=== PATIENT | male | born 1935 | race Caucasian/White ===

== ENCOUNTER 2019-01-30 06:51 | Emergency (ER) | payer OTHER ==
[~2019-01-30] VITALS: Ht 167.6 cm; Wt 80.3 kg
[~2019-01-30 06:51] MED LIST: ACET325 PO; AMOCLA875 PO; ASCO500 PO; ASPI81CH PO; CALCAVITDA PO; CALCIUM 500 MG1 EACH PO; Calcium + Vita1 EACH PO; Cortef20 MG PO; DOCU100 PO; Depo-Testo100 MG/1 M IM; FAMO20 PO; HYDCOR10 PO; LEVE500 PO; LEVSOD75 PO; NAPR500 PO; Prinivil10 MG PO; SIMV40 PO; TESTOSTERONE TOP; [UNRECOGNIZED DRUG - OTHER] TOP
[2019-01-30] MEDS ORDERED: SILDENAFIL20 MG PO (07:41)
[2019-01-30 08:22] LABS: BASOPHILS ABSOLUTE AUTO 0.03 K/mm3 (0.00-0.23); BASOPHILS PERCENT AUTO 0 % (0-2); EOSINOPHILS ABSOLUTE AUTO 0.08 K/mm3 (0.00-0.68); EOSINOPHILS PERCENT AUTO 1 % (0-6); Hematocrit 42.5 % (37.0-53.0); Hemoglobin 14.2 g/dL (13.5-17.5); IMMATURE GRAN ABSOLUTE AUTO 0.05 K/mm3 (0.00-0.10); IMMATURE GRAN PERCENT AUTO 1 % (0-1); LYMPHOCYTES ABSOLUTE AUTO 1.07 K/mm3 (0.84-5.20); LYMPHOCYTES PERCENT AUTO 12 % (21-46); MONOCYTES ABSOLUTE AUTO 0.78 K/mm3 (0.16-1.47); MONOCYTES PERCENT AUTO 9 % (4-13); Mean Corpuscular HGB 32.6 pg (26.0-34.0); Mean Corpuscular HGB Conc 33.4 g/dL (31.5-36.5); Mean Corpuscular Volume 98 fL (80-100); Mean Platelet Volume 10.2 fL (9.1-12.4); NEUTROPHILS PERCENT AUTO 78 % (41-73); Platelet Count 184 K/mm3 (150-400); RDW Coefficient Variation 11.9 % (11.7-14.2); RDW Standard Deviation 43.3 fL (35.1-46.3); Red Blood Cell Count 4.36 M/mm3 (4.30-5.90); White Blood Cell Count 9.01 K/mm3 (4.00-11.30)
[2019-01-30 08:28] LABS: Source, Urine Clean Catch
[2019-01-30 08:32] LABS: Appearance, Urine Clear (Clear); Bilirubin, Urine Neg (Neg); Blood, Urine 3+ (Neg); Color, Urine Yellow (P-Yellow); Glucose Qualitative, Urine Neg (Neg); Ketones, Urine Neg (Neg); Leukocyte Esterase, Urine Neg (Neg); Nitrite, Urine Neg (Neg); Protein, Urine Neg (Neg); Urobilinogen, Urine NORM (Normal); pH, Urine 6.5 (5.0-8.0)
[2019-01-30 08:34] LABS: Albumin, Blood 3.4 g/dL (3.4-5.0); Albumin/Globulin Ratio 1.1 (0.8-1.8); Bilirubin, Total 0.8 mg/dL (0.1-1.0); Bun/Creatinine Ratio 10.7 (12.0-20.0); Calcium, Blood 8.1 mg/dL (8.5-10.1); Creatinine, Blood 1.31 mg/dL (0.60-1.20); Globulin, Blood 3.1 g/dL (2.2-4.0); Potassium, Blood 4.1 mmol/L (3.5-5.5); Total Protein, Blood 6.5 g/dL (6.4-8.2)
[2019-01-30 09:08] LABS: Bacteria Not Seen /hpf; Squamous Epithelial Cells Not Seen /hpf (Few); White Blood Cells, Urine Not Seen /hpf (0-5)
[2019-01-30 09:09] LABS: Mucus Light ({null, 0-Heavy}); Transitional Epithelial Cells Rare /hpf ({null, 0-Rare})
[2019-01-30] MEDS ORDERED: Augmentin 875-1 EACH PO (10:21)
== END 2019-01-30 10:42 | disposition home or self-care (01) ==
LOC: ER 06:51
PROVIDERS: Emergency Medicine
DX: K57.32 Diverticulitis of large intestine without perforation or abscess without bleeding (principal); Z86.018 Personal history of other benign neoplasm; Z79.899 Other long term (current) drug therapy; Z79.82 Long term (current) use of aspirin
CPT/HCPCS: 36415; 74177; 80053; 81001; 83690; 85025; 96360-59; 99284-25; J7120; Q9967

== ENCOUNTER → 2020-03-09 | Outpatient (CLI) | payer OTHER ==
[~2020-03-09] MED LIST changes: +Augmentin 875-1 EACH PO; +SILDENAFIL20 MG PO
[2020-03-11 13:40] LABS: CORONAVIRUS (COVID19) CSH-NRL Negative (Negative)
== END | disposition home or self-care (01) ==
LOC: LAB 13:51 → LAB SHORT 13:51
PROVIDERS: Physician Assistant
DX: Z20.828 Contact with and (suspected) exposure to other viral communicable diseases (principal)
CPT/HCPCS: U0003

== ENCOUNTER → 2021-07-30 | Outpatient (CLI) | payer OTHER ==
[2021-07-31 13:03] LABS: Stool Occult Bld Immuno 1 Negative (NEGATIVE)
== END | disposition home or self-care (01) ==
LOC: LAB EV 10:12 → LAB SHORT 10:12
PROVIDERS: Family Medicine
DX: Z12.11 Encounter for screening for malignant neoplasm of colon (principal)
CPT/HCPCS: 82274

== ENCOUNTER 2022-04-13 15:40 | Inpatient (IN) | payer OTHER ==
[~2022-04-13] VITALS: Ht 170.2 cm; Wt 86.1 kg
[~2022-04-13 15:40] MED LIST changes: +CARV3.125 PO; +CLOP75 PO
[2022-04-13 16:40] LABS: BASOPHILS ABSOLUTE AUTO 0.03 K/mm3 (0.00-0.23); BASOPHILS PERCENT AUTO 0 % (0-2); EOSINOPHILS ABSOLUTE AUTO 0.03 K/mm3 (0.00-0.68); EOSINOPHILS PERCENT AUTO 0 % (0-6); Hematocrit 43.4 % (37.0-53.0); IMMATURE GRAN ABSOLUTE AUTO 0.08 K/mm3 (0.00-0.10); IMMATURE GRAN PERCENT AUTO 1 % (0-1); LYMPHOCYTES ABSOLUTE AUTO 0.81 K/mm3 (0.84-5.20); LYMPHOCYTES PERCENT AUTO 8 % (21-46); MONOCYTES ABSOLUTE AUTO 0.96 K/mm3 (0.16-1.47); MONOCYTES PERCENT AUTO 10 % (4-13); Mean Corpuscular HGB Conc 34.6 g/dL (31.5-36.5); Mean Corpuscular Volume 96 fL (80-100); Mean Platelet Volume 10.1 fL (9.1-12.4); NEUTROPHILS ABSOLUTE AUTO 8.06 K/mm3 (1.96-9.15); NEUTROPHILS PERCENT AUTO 81 % (41-73); Platelet Count 174 K/mm3 (150-400); RDW Coefficient Variation 12.6 % (11.7-14.2); Red Blood Cell Count 4.54 M/mm3 (4.30-5.90); White Blood Cell Count 9.97 K/mm3 (4.00-11.30)
[2022-04-13 17:17] LABS: Appearance, Urine Clear (Clear); Bilirubin, Urine Neg (Neg); Blood, Urine 5+ (Neg); Color, Urine Yellow (P-Yellow); Glucose Qualitative, Urine Neg (Neg); Ketones, Urine 1+ (Neg); Leukocyte Esterase, Urine Neg (Neg); Nitrite, Urine Neg (Neg); Protein, Urine 3+ (Neg); Source, Urine Straight Cath; Urobilinogen, Urine NORM (Normal)
[2022-04-13] MEDS ORDERED: AMLODIPINE BES2.5 MG PO (17:20)
[2022-04-13 17:29] LABS: Alanine Aminotransfer (ALT/SGP 27 U/L (12-78); Albumin, Blood 3.8 g/dL (3.4-5.0); Albumin/Globulin Ratio 1.1 (0.8-1.8); Alk Phos 48 U/L (50-136); Anion Gap 8 mmol/L (6-16); Aspartate Aminotrans (AST/SGOT 37 U/L (12-37); Bilirubin, Total 0.7 mg/dL (0.1-1.0); Blood Urea Nitrogen 21 mg/dL (8-24); Bun/Creatinine Ratio 14.5 (12.0-20.0); CO2, Blood 21 mmol/L (21-32); Calcium, Blood 8.6 mg/dL (8.5-10.1); Chloride, Blood 109 mmol/L (98-108); Creatinine, Blood 1.45 mg/dL (0.60-1.20); Ethanol (Alcohol), Blood, Med <3 mg/dL; Globulin, Blood 3.6 g/dL (2.2-4.0); Glomerular Filtration Rate 48 (60-); Glucose, Blood 65 mg/dL (70-99); Potassium, Blood 4.4 mmol/L (3.5-5.5); Sodium, Blood 138 mmol/L (136-145); Total Protein, Blood 7.4 g/dL (6.4-8.2)
[2022-04-13 17:38] LABS: Bacteria Few /hpf; Squamous Epithelial Cells Not Seen /hpf (Few); White Blood Cells, Urine 0-2 /hpf (0-5)
[2022-04-13 18:05] LABS: International Normalized Ratio 1.08; Prothrombin Time Results 11.3 Sec (9.7-11.5)
[2022-04-13 18:20] LABS: Influenza B, PCR NEGATIVE (NEGATIVE); Resp Syncytial Virus, PCR NEGATIVE (NEGATIVE); SARS-Cov-2 (COVID-19) PCR, MMC NEGATIVE (NEGATIVE)
[2022-04-13 18:28] LABS: Influenza A, PCR POSITIVE (NEGATIVE)
--- NOTE | 2022-04-14 01:56 | NUR ---
PATIENT ARRIVED TO ROOM 337 AT 2358. INITIAL TEMP WAS 105.3. ICE PACKS WERE PLACED IN AXILLARY AREA AND GROIN. PATIENT WAS NON VERBAL AND DID NOT APPEAR ABLE TO UNDERSTAND OR REACT TO COMMANDS. AFTER RECEIVING ORDERED IV D50, PATIENT BEGAN WAKING UP AND ATTEMPTING TO CRAWL OVER RAILS. HE HAS BEEN PULLING AT BOTH HIS IV'S, AND IN ORDER TO RECEIVE IV FLUIDS, HE WILL NEED AN OPPOSITE WRIST RESTRAINT TO MAINTAIN EITHER SITE. CALL PLACED TO MD FOR ORDER
--- NOTE | 2022-04-14 04:39 | NUR ---
patient unable to void more than 50 ml. Bladder scanned for 301 ml just after very small void. will recheck at 0600
[2022-04-14 06:41] LABS: BASOPHILS ABSOLUTE AUTO 0.04 K/mm3 (0.00-0.23); BASOPHILS PERCENT AUTO 0 % (0-2); EOSINOPHILS PERCENT AUTO 0 % (0-6); Hematocrit 38.1 % (37.0-53.0); Hemoglobin 13.5 g/dL (13.5-17.5); IMMATURE GRAN ABSOLUTE AUTO 0.05 K/mm3 (0.00-0.10); IMMATURE GRAN PERCENT AUTO 1 % (0-1); LYMPHOCYTES ABSOLUTE AUTO 0.69 K/mm3 (0.84-5.20); LYMPHOCYTES PERCENT AUTO 7 % (21-46); MONOCYTES ABSOLUTE AUTO 1.36 K/mm3 (0.16-1.47); MONOCYTES PERCENT AUTO 14 % (4-13); Mean Corpuscular HGB 33.7 pg (26.0-34.0); Mean Corpuscular HGB Conc 35.4 g/dL (31.5-36.5); Mean Corpuscular Volume 95 fL (80-100); Mean Platelet Volume 10.5 fL (9.1-12.4); NEUTROPHILS ABSOLUTE AUTO 7.69 K/mm3 (1.96-9.15); NEUTROPHILS PERCENT AUTO 78 % (41-73); Platelet Count 148 K/mm3 (150-400); RDW Coefficient Variation 12.6 % (11.7-14.2); RDW Standard Deviation 44.5 fL (35.1-46.3); Red Blood Cell Count 4.01 M/mm3 (4.30-5.90); White Blood Cell Count 9.83 K/mm3 (4.00-11.30)
[2022-04-14 07:00] LABS: Albumin, Blood 2.9 g/dL (3.4-5.0); Bilirubin, Total 0.7 mg/dL (0.1-1.0); Bun/Creatinine Ratio 13.2 (12.0-20.0); Calcium, Blood 7.9 mg/dL (8.5-10.1); Creatinine, Blood 2.04 mg/dL (0.60-1.20); Globulin, Blood 2.9 g/dL (2.2-4.0); Potassium, Blood 3.8 mmol/L (3.5-5.5); Total Protein, Blood 5.8 g/dL (6.4-8.2)
--- NOTE | 2022-04-14 07:52 | NUR ---
PATIENT ARRIVED TO ROOM AT 2330 FROM THE ER VERY SOMNOLENT, TEMP OF 105.3 CBG IN 60'S. UNABLE TO FOLLOW COMMANDS. PATIENT WAS PULLING AT IV LINES AND BRIEF AND TRYING TO PUT FEET OVER THE RAILS. iCE IMMEDIATELY PLACED IN AXILLIARY AREAS, GROIN AND NECK. D50 GIVEN PER ORDER ON ARRIVAL. PATIENT ROUSED SLIGHTLY AND WAS ABLE TO DRINK A SMALL AMOUNT OF ORANGE JUICE AND EAT A FEW BITES OF SHERBERT. BLOOD SUGAR AFTER ONE HOUR REMAINED IN THE 60'S. ORDER FOR RECTAL TYLENOL RECEIVED AND GIVEN WELL ORDER FOR SINGLE SOFT WRIST RESTRAINTS AND 4 RAILS FOR SAFETY. AROUND 0600, AND AFTER A 2ND DOSE OF D50, PATIENT'S BLOOD SUGAR CAME UP TO 98. WITHIN AN HOUR, IT WAS BEGINNING TO GO DOWN AGAIN. ONCOMING RN INFORMED OF SITUATION.
--- NOTE | 2022-04-14 08:00 | NUR ---
Pt laying in bed with one soft wrist restraint in place, he is not pulling at anything, will eval for removal, his was in this am and gave him a bit of breakfast which he started coughing, asked her to stop, he is a/o to self at this time, lungs are dim t/o, on one liter of 02 via n/c, resp even and unlabored, no cough noted, hrr, has pacer to lcw, no edema noted, ppp+2, cap refill <3sec, vs stable, iv site to [facility], infusing fluids as ordered, btx4, abd flat soft nontender, briefs in place, skin has abraisions to right upper arm, otherwise skin c/w/d, jose modi, he follows commands, but can't say where he is, and sentences tend to trail off with mumbling. call light in reach.
--- NOTE | 2022-04-14 12:22 | NUR ---
pt states he has to have a bm, attempting to get oob, got him up to bsc with two person assist, he is able to stand and back up to chair, seems a bit more alert, had a soft med brown stool, placed pull ups on him, gave him water in an upright position, he swallowed without chocking or cough, went ahead a tried po meds with water and yogurt, one at a time, he swallowed without cough, restraints removed, call light in reach.
--- NOTE | 2022-04-14 14:45 | NUR ---
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 Koroma was called to room to update , b/p dropping to the 70's, bolusing with ns, o2 wide open, he became responsive again on his own, will administer iv keppra as ordered, new iv started to rw by viscose cellar charge hand, will monitor vs closely durring bolus, pt talking at this time and recognizes .
--- NOTE | 2022-04-14 15:43 | NUR ---
sbp over 100 at this time, josh saez, pt responsive. spouce in room. call light in reach.
--- NOTE | 2022-04-14 18:40 | NUR ---
pt attempted to climb oob this evening, had to use bsc, and had another stool, ambulated around the bed to the bsc with one person assist, only attempts to get oob when needs toileting, used the urinal this evening as well, call light in reach.
--- NOTE | 2022-04-15 04:30 | NUR ---
UROJET ORDER OBTAINED AND MED ADMINISTERED THEN 14FR COUDE STRAIGHT CATH PROCEDURE PERFORMED FOR APPROX 375 MLS URINE OUTPUT. PRE-CATH BLADDER SCAN SHOWED APPROX 310 MLS. PT TOLERATED WELL W/STERILE TECHNIQUE MAINTAINED.
--- NOTE | 2022-04-15 05:18 | NUR ---
SHIFT SUMMARY: Pt was A/Ox1 and impulsive. Bed alarms utilized for pt safety. Pt denied pain, SOB nausea, dizziness. He was able to wean oxygen to RA. Pt keept trying to urinate but couldnt. Bladder scan was 310 and pt felt like he was retaining. notified and straight cath order placed. Straight cath patient for around 310mL. Bladder scan recheck for around 11am.
[2022-04-15 05:36] LABS: BASOPHILS ABSOLUTE AUTO 0.01 K/mm3 (0.00-0.23); BASOPHILS PERCENT AUTO 0 % (0-2); EOSINOPHILS PERCENT AUTO 0 % (0-6); Hematocrit 35.6 % (37.0-53.0); Hemoglobin 12.6 g/dL (13.5-17.5); IMMATURE GRAN ABSOLUTE AUTO 0.03 K/mm3 (0.00-0.10); IMMATURE GRAN PERCENT AUTO 0 % (0-1); LYMPHOCYTES ABSOLUTE AUTO 0.63 K/mm3 (0.84-5.20); LYMPHOCYTES PERCENT AUTO 8 % (21-46); MONOCYTES ABSOLUTE AUTO 0.77 K/mm3 (0.16-1.47); MONOCYTES PERCENT AUTO 9 % (4-13); Mean Corpuscular HGB 33.2 pg (26.0-34.0); Mean Corpuscular HGB Conc 35.4 g/dL (31.5-36.5); Mean Corpuscular Volume 94 fL (80-100); Mean Platelet Volume 10.4 fL (9.1-12.4); NEUTROPHILS ABSOLUTE AUTO 6.87 K/mm3 (1.96-9.15); NEUTROPHILS PERCENT AUTO 83 % (41-73); Platelet Count 140 K/mm3 (150-400); RDW Coefficient Variation 12.6 % (11.7-14.2); Red Blood Cell Count 3.79 M/mm3 (4.30-5.90); White Blood Cell Count 8.31 K/mm3 (4.00-11.30)
[2022-04-15 06:26] LABS: Albumin, Blood 2.8 g/dL (3.4-5.0); Anion Gap 4 mmol/L (6-16); Blood Urea Nitrogen 23 mg/dL (8-24); Bun/Creatinine Ratio 17.8 (12.0-20.0); CO2, Blood 24 mmol/L (21-32); Chloride, Blood 112 mmol/L (98-108); Creatinine, Blood 1.29 mg/dL (0.60-1.20); Glomerular Filtration Rate 55 (60-); Glucose, Blood 94 mg/dL (70-99); Magnesium, Blood 2.1 mg/dL (1.6-2.4); Phosphorus, Blood 2.6 mg/dL (2.5-4.9); Potassium, Blood 4.6 mmol/L (3.5-5.5); Sodium, Blood 140 mmol/L (136-145)
--- NOTE | 2022-04-15 17:57 | NUR ---
SHIFT SUMMARY NO ACUTE CHANGES DURING SHIFT. PT STILL VERY CONFUSED, IMPULSIVE. BED ALARM ON. ST SAW PT TODAY, STARTED ON PUREED DIET, PT TOLERATING. BLADDER SCAN COMPLETED PER ORDES, < 150ML SCANNED. PT VOIDING DURING SHIFT. KEPPRA CHANGED TO PO. NO C/O PAIN. WILL CONTINUE TO MONITOR. CALL LIGHT WITHIN REACH.
--- NOTE | 2022-04-16 04:00 | NUR ---
SHIFT SUMMARY: Pt A/Ox1. Overnight pt was very confused and impulsive. He seemed to be having some hallucinations stating his was right outside the window. He at one point was convinced he had to find his truck and shoes to go to "work." He did not sleep. was paged- meletonin ordered and given. This seemed to be ineffective as pt was still impulsive and confused. Bed alarms on for safety as well as 3 side rails. He denied SOB, nausea, numbness/tingling and dizziness. He was able to ambulate SBA.
[2022-04-16 06:16] LABS: BASOPHILS ABSOLUTE AUTO 0.01 K/mm3 (0.00-0.23); BASOPHILS PERCENT AUTO 0 % (0-2); EOSINOPHILS PERCENT AUTO 0 % (0-6); Hematocrit 33.6 % (37.0-53.0); Hemoglobin 11.9 g/dL (13.5-17.5); IMMATURE GRAN ABSOLUTE AUTO 0.03 K/mm3 (0.00-0.10); IMMATURE GRAN PERCENT AUTO 1 % (0-1); LYMPHOCYTES ABSOLUTE AUTO 0.89 K/mm3 (0.84-5.20); LYMPHOCYTES PERCENT AUTO 15 % (21-46); MONOCYTES ABSOLUTE AUTO 0.48 K/mm3 (0.16-1.47); MONOCYTES PERCENT AUTO 8 % (4-13); Mean Corpuscular HGB 33.6 pg (26.0-34.0); Mean Corpuscular HGB Conc 35.4 g/dL (31.5-36.5); Mean Corpuscular Volume 95 fL (80-100); NEUTROPHILS ABSOLUTE AUTO 4.49 K/mm3 (1.96-9.15); NEUTROPHILS PERCENT AUTO 76 % (41-73); Platelet Count 141 K/mm3 (150-400); RDW Coefficient Variation 12.5 % (11.7-14.2); RDW Standard Deviation 44.1 fL (35.1-46.3); Red Blood Cell Count 3.54 M/mm3 (4.30-5.90)
[2022-04-16 06:33] LABS: Albumin, Blood 2.9 g/dL (3.4-5.0); Anion Gap 6 mmol/L (6-16); Blood Urea Nitrogen 23 mg/dL (8-24); Bun/Creatinine Ratio 19.8 (12.0-20.0); CO2, Blood 23 mmol/L (21-32); Chloride, Blood 112 mmol/L (98-108); Creatinine, Blood 1.16 mg/dL (0.60-1.20); Glomerular Filtration Rate 62 (60-); Glucose, Blood 81 mg/dL (70-99); Magnesium, Blood 2.1 mg/dL (1.6-2.4); Phosphorus, Blood 2.6 mg/dL (2.5-4.9); Potassium, Blood 3.8 mmol/L (3.5-5.5); Sodium, Blood 141 mmol/L (136-145)
--- NOTE | 2022-04-16 18:10 | NUR ---
PT TRANSFERRED TO SCU PT TRANSFERRED FROM MAIN MEDICAL FLOOR TO SCU, ROOM 350. REPORT GIVEN TO CLAIRE PANTOJA RN. PT SAFELY ESCORTED VIA BED. FAMILY (STEP SON, LAVERNE), AT BEDSIDE, AWARE OF TRANSFER. PT RESTRAINT DOCUMENTATION UP TO DATE. PT STABLE UPON TRANSFER. AxOx1- SELF.
--- NOTE | 2022-04-16 20:17 | NUR ---
SHIFT SUMMARY PTN TRANSFER FROM FLOOR AT 4 PM TO OUR CARE. PTN CONFUSED WITH METABOLIC ENCEPHALOPATHY. HE DOES HAVE DX DEMENTIA. PTN IS IMPULSIVE AND IT WAS REPORTED THAT HE GOT OUT OF THE NATHANIEL 4 TIMES, AND SOFT WRIST RESTRAINTS WERE APPLIED. IN THE SHORT FEW HOURS IN OUR CARE, PTN GOT OUT OF WRIST RESTAINT AND WAS STILL TRYING TO EXIT BED. HE DID TAKE HIS MEDICATION IN PUREED PEACHES, AND THIS RN WAS ABLE TO FLUSH THE PERIPHERAL IV IN HIS RIGHT HAND AND ADMINISTER IV ANTIBIOICS. IT WAS PASSED ON THAT PTN MAY DO WELL TO BE ABLE TO GET UP AND MOVE AROUND, BUT CURRENTLY NOT RE-DIRECTED EASILY AND IMPULSIVE, ALONG WITH BEING CONFUSED. YAS INVOLVED IN PTN CARE. COTINUE TO MONITOR.
--- NOTE | 2022-04-17 03:15 | NUR ---
Patient remains in restraints, very combative with staff, trying to hit and kick while recieving care, attempting to get out of bed even while restraints to wrists and torso were in place. Resting at this time.
[2022-04-17 06:01] LABS: Anion Gap 7 mmol/L (6-16); Blood Urea Nitrogen 22 mg/dL (8-24); CO2, Blood 24 mmol/L (21-32); Calcium, Blood 7.8 mg/dL (8.5-10.1); Chloride, Blood 113 mmol/L (98-108); Creatinine, Blood 1.05 mg/dL (0.60-1.20); Glomerular Filtration Rate 70 (60-); Glucose, Blood 80 mg/dL (70-99); Magnesium, Blood 2.1 mg/dL (1.6-2.4); Phosphorus, Blood 3.4 mg/dL (2.5-4.9); Potassium, Blood 3.6 mmol/L (3.5-5.5); Sodium, Blood 144 mmol/L (136-145)
[2022-04-17 06:41] LABS: BASOPHILS PERCENT AUTO 0 % (0-2); EOSINOPHILS PERCENT AUTO 0 % (0-6); Hematocrit 34.2 % (37.0-53.0); Hemoglobin 11.9 g/dL (13.5-17.5); IMMATURE GRAN ABSOLUTE AUTO 0.01 K/mm3 (0.00-0.10); IMMATURE GRAN PERCENT AUTO 0 % (0-1); LYMPHOCYTES ABSOLUTE AUTO 0.88 K/mm3 (0.84-5.20); LYMPHOCYTES PERCENT AUTO 21 % (21-46); MONOCYTES ABSOLUTE AUTO 0.37 K/mm3 (0.16-1.47); MONOCYTES PERCENT AUTO 9 % (4-13); Mean Corpuscular HGB 33.1 pg (26.0-34.0); Mean Corpuscular HGB Conc 34.8 g/dL (31.5-36.5); Mean Corpuscular Volume 95 fL (80-100); Mean Platelet Volume 11.1 fL (9.1-12.4); NEUTROPHILS ABSOLUTE AUTO 2.86 K/mm3 (1.96-9.15); NEUTROPHILS PERCENT AUTO 69 % (41-73); Platelet Count 144 K/mm3 (150-400); RDW Coefficient Variation 12.4 % (11.7-14.2); RDW Standard Deviation 43.6 fL (35.1-46.3); White Blood Cell Count 4.12 K/mm3 (4.00-11.30)
[2022-04-17] MEDS ORDERED: AZIT250 PO (11:42)
[2022-04-17] MEDS ORDERED: AMOCLA875 PO (11:44)
[2022-04-17] MEDS ORDERED: OSELTAMIVIR PHO30 M1 PO (12:01)
--- NOTE | 2022-04-17 15:19 | NUR ---
DC HOME PT'S IS INSISTENT UPON TAKING PT HOME. STATES HE'LL BE MORE COMFORTABLE IN HIS OWN ENVIROMENT AND CONFIDENT HE'LL CLEAR MENTALLY. AGREED TO DC PT HOME W/HH. WRITTEN & VERBAL DC INSTRUCTIONS GIVEN TO PT AND PT'S . PT'S VERBALIZES GOOD UNDERSTANDING. PIV DC'D WITH CATH TIP INTACT, NO REDNESS OR SWELLING NOTED. PT DRESSED IN OWN CLOTHES WITH MOD TO MAX ASSIST. PT RESISTANT TO FOLLOWING DIRECTIONS, REFUSED TO PUT ON SOCKS & SHOES. PT'S SON ALSO PRESENT FOR DC. PT TO PRIVATE VEHICLE VIA W/C WITH ALL PERSONAL BELONGINGS.
== END 2022-04-17 15:00 | disposition home health service (06) | DRG 871 ==
LOC: ER 15:40 → MEDS 21:53
PROVIDERS: Family Medicine; Student in an Organized Health Care Education/Training Program; ADMIT Internal Medicine
DX: A41.9 Sepsis, unspecified organism (principal); G92.8 Other toxic encephalopathy; J96.01 Acute respiratory failure with hypoxia; J10.08 Influenza due to other identified influenza virus with other specified pneumonia; J15.9 Unspecified bacterial pneumonia; E27.40 Unspecified adrenocortical insufficiency; N17.9 Acute kidney failure, unspecified; E03.9 Hypothyroidism, unspecified; E16.2 Hypoglycemia, unspecified; I10 Essential (primary) hypertension; G30.9 Alzheimer's disease, unspecified; E78.5 Hyperlipidemia, unspecified; M19.90 Unspecified osteoarthritis, unspecified site; K21.9 Gastro-esophageal reflux disease without esophagitis; F02.80 Dementia in other diseases classified elsewhere, unspecified severity, without behavioral disturbance, psychotic disturbance, mood disturbance, and anxiety; G40.909 Epilepsy, unspecified, not intractable, without status epilepticus; W19.XXXA Unspecified fall, initial encounter; Z20.822 Contact with and (suspected) exposure to COVID-19; Z79.899 Other long term (current) drug therapy; Z79.82 Long term (current) use of aspirin; Z86.73 Personal history of transient ischemic attack (TIA), and cerebral infarction without residual deficits; Z79.811 Long term (current) use of aromatase inhibitors; Z98.890 Other specified postprocedural states; Z98.42 Cataract extraction status, left eye; Z98.41 Cataract extraction status, right eye; Z95.0 Presence of cardiac pacemaker
CPT/HCPCS: 0241U; 36415; 70450; 71045; 80053; 80069; 81001; 82947; 83605; 83735; 83880; 84145; 84484; 85025; 85610; 87040; 92610; 93005; 93010; 97116; 97161; 97530; 99285-25; A9270; C9113; G0480; J0456; J0696; J1644; J1650; J1720; J1953; J2060; J7030; J7050; J7120; J7799

== ENCOUNTER 2023-05-25 09:02 | Emergency (ER) | payer OTHER ==
[~2023-05-25] VITALS: Ht 175.3 cm; Wt 81.7 kg
[~2023-05-25 09:02] MED LIST changes: +AMLODIPINE BES2.5 MG PO; +AZIT250 PO; +OSELTAMIVIR PHO30 M1 PO
[2023-05-25 09:30] LABS: BASOPHILS ABSOLUTE AUTO 0.03 K/mm3 (0.00-0.23); BASOPHILS PERCENT AUTO 0 % (0-2); EOSINOPHILS ABSOLUTE AUTO 0.03 K/mm3 (0.00-0.68); EOSINOPHILS PERCENT AUTO 0 % (0-6); Hematocrit 36.7 % (37.0-53.0); Hemoglobin 12.4 g/dL (13.5-17.5); IMMATURE GRAN ABSOLUTE AUTO 0.03 K/mm3 (0.00-0.10); IMMATURE GRAN PERCENT AUTO 0 % (0-1); LYMPHOCYTES ABSOLUTE AUTO 0.82 K/mm3 (0.84-5.20); LYMPHOCYTES PERCENT AUTO 12 % (21-46); MONOCYTES ABSOLUTE AUTO 0.78 K/mm3 (0.16-1.47); MONOCYTES PERCENT AUTO 11 % (4-13); Mean Corpuscular HGB 32.9 pg (26.0-34.0); Mean Corpuscular HGB Conc 33.8 g/dL (31.5-36.5); Mean Corpuscular Volume 97 fL (80-100); Mean Platelet Volume 10.1 fL (9.1-12.4); NEUTROPHILS ABSOLUTE AUTO 5.14 K/mm3 (1.96-9.15); NEUTROPHILS PERCENT AUTO 75 % (41-73); Platelet Count 141 K/mm3 (150-400); RDW Coefficient Variation 12.9 % (11.7-14.2); RDW Standard Deviation 45.6 fL (35.1-46.3); Red Blood Cell Count 3.77 M/mm3 (4.30-5.90); White Blood Cell Count 6.83 K/mm3 (4.00-11.30)
[2023-05-25] MEDS ORDERED: NS 1,000 ML IV SCH (09:35)
[2023-05-25] MEDS ORDERED: Hydrocortisone Sod Succinate 100 MG Vial IV ONE (09:35)
[2023-05-25 09:45] LABS: Albumin, Blood 3.5 g/dL (3.4-5.0); Bilirubin, Total 0.8 mg/dL (0.1-1.0); Bun/Creatinine Ratio 17.2 (12.0-20.0); Calcium, Blood 8.7 mg/dL (8.5-10.1); Creatinine, Blood 1.69 mg/dL (0.60-1.20); Globulin, Blood 3.4 g/dL (2.2-4.0); Potassium, Blood 4.4 mmol/L (3.5-5.5); Total Protein, Blood 6.9 g/dL (6.4-8.2)
[2023-05-25] MEDS ORDERED: QUET25 PO (09:47)
[2023-05-25] MEDS ORDERED: SPIR25 PO (09:47)
[2023-05-25 10:36] LABS: Influenza A, PCR NEGATIVE (NEGATIVE); Influenza B, PCR NEGATIVE (NEGATIVE); Resp Syncytial Virus, PCR NEGATIVE (NEGATIVE)
[2023-05-25 10:38] LABS: SARS-Cov-2 (COVID-19) PCR, MMC POSITIVE (NEGATIVE)
[2023-05-25 11:23] LABS: Source, Urine Voided
[2023-05-25 11:38] LABS: Appearance, Urine Clear (Clear); Bilirubin, Urine Neg (Neg); Blood, Urine 5+ (Neg); Color, Urine Yellow (P-Yellow); Glucose Qualitative, Urine Neg (Neg); Ketones, Urine Neg (Neg); Leukocyte Esterase, Urine Neg (Neg); Nitrite, Urine Neg (Neg); Protein, Urine 2+ (Neg); Urobilinogen, Urine NORM (Normal)
[2023-05-25 11:48] LABS: Bacteria Rare /hpf; Mucus Light (0-Heavy); Squamous Epithelial Cells Rare /hpf (Few)
[2023-05-25] MEDS ORDERED: LevETIRAcetam 500 MG Tab PO ONE (12:55)
[2023-05-25 13:09] VITALS: BP 123/79
[2023-05-25] MEDS ORDERED: PAXLOVID 300-11 EAC1 PO (14:06)
== END 2023-05-25 13:50 | disposition home or self-care (01) ==
LOC: ER 09:02
PROVIDERS: Emergency Medicine
DX: U07.1 COVID-19 (principal); N17.9 Acute kidney failure, unspecified; I12.9 Hypertensive chronic kidney disease with stage 1 through stage 4 chronic kidney disease, or unspecified chronic kidney disease; N18.9 Chronic kidney disease, unspecified; E78.5 Hyperlipidemia, unspecified; K21.9 Gastro-esophageal reflux disease without esophagitis; M19.90 Unspecified osteoarthritis, unspecified site; G30.9 Alzheimer's disease, unspecified; F02.80 Dementia in other diseases classified elsewhere, unspecified severity, without behavioral disturbance, psychotic disturbance, mood disturbance, and anxiety; E27.40 Unspecified adrenocortical insufficiency; E03.9 Hypothyroidism, unspecified; Z86.018 Personal history of other benign neoplasm; Z79.890 Hormone replacement therapy; Z79.82 Long term (current) use of aspirin; Z79.899 Other long term (current) drug therapy
CPT/HCPCS: 0241U; 36415; 71046; 80053; 81001; 83605; 84145; 85025; 87040; 93005; 93010; 96361; 96374; 99285-25; A9270; J1720; J7030

== ENCOUNTER → 2024-01-30 | Outpatient (CLI) | payer OTHER ==
[~2024-01-30] MED LIST changes: +PAXLOVID 300-11 EAC1 PO; +QUET25 PO; +SPIR25 PO
[2024-01-30 14:19] LABS: Appearance, Urine Clear (Clear); Bilirubin, Urine Neg (Neg); Blood, Urine 1+ (Neg); Color, Urine Yellow (P-Yellow); Glucose Qualitative, Urine Neg (Normal); Ketones, Urine Neg (Neg); Leukocyte Esterase, Urine Neg (Neg); Nitrite, Urine Neg (Neg); Protein, Urine Neg (Neg); Urobilinogen, Urine NORM (Normal)
[2024-01-30 14:31] LABS: Bacteria Not Seen /hpf; Squamous Epithelial Cells Not Seen /hpf (Few); White Blood Cells, Urine 0-2 /hpf (0-5)
[2024-01-30 14:32] LABS: Calcium Oxalate Crystals Few /hpf; Mucus Light (0-Heavy)
== END | disposition home or self-care (01) ==
LOC: LAB 11:00 → LAB SHORT 11:00
PROVIDERS: Family Medicine
DX: R60.0 Localized edema (principal)
CPT/HCPCS: 81001

== ENCOUNTER → 2024-02-12 | Outpatient (CLI) | payer OTHER ==
[~2024-02-12] MED LIST changes: +ACET500 PO; +Cortef5 MG PO
[2024-02-12 08:39] LABS: BASOPHILS ABSOLUTE AUTO 0.06 K/mm3 (0.00-0.23); BASOPHILS PERCENT AUTO 1 % (0-2); EOSINOPHILS ABSOLUTE AUTO 0.34 K/mm3 (0.00-0.68); EOSINOPHILS PERCENT AUTO 3 % (0-6); Hematocrit 31.3 % (37.0-53.0); IMMATURE GRAN ABSOLUTE AUTO 0.04 K/mm3 (0.00-0.10); IMMATURE GRAN PERCENT AUTO 0 % (0-1); LYMPHOCYTES ABSOLUTE AUTO 1.71 K/mm3 (0.84-5.20); LYMPHOCYTES PERCENT AUTO 16 % (21-46); MONOCYTES ABSOLUTE AUTO 1.16 K/mm3 (0.16-1.47); MONOCYTES PERCENT AUTO 11 % (4-13); Mean Corpuscular HGB 33.3 pg (26.0-34.0); Mean Corpuscular HGB Conc 35.1 g/dL (31.5-36.5); Mean Corpuscular Volume 95 fL (80-100); Mean Platelet Volume 11.1 fL (9.1-12.4); NEUTROPHILS ABSOLUTE AUTO 7.27 K/mm3 (1.96-9.15); NEUTROPHILS PERCENT AUTO 69 % (41-73); Platelet Count 196 K/mm3 (150-400); RDW Coefficient Variation 11.7 % (11.7-14.2); RDW Standard Deviation 40.2 fL (35.1-46.3); White Blood Cell Count 10.58 K/mm3 (4.00-11.30)
[2024-02-12 08:48] LABS: Albumin, Blood 3.5 g/dL (3.4-5.0); Albumin/Globulin Ratio 1.1 (0.8-1.8); Bilirubin, Total 0.8 mg/dL (0.1-1.0); Calcium, Blood 8.9 mg/dL (8.5-10.1); Creatinine, Blood 2.58 mg/dL (0.60-1.20); Globulin, Blood 3.3 g/dL (2.2-4.0); Potassium, Blood 4.1 mmol/L (3.5-5.5); Total Protein, Blood 6.8 g/dL (6.4-8.2)
== END | disposition home or self-care (01) ==
LOC: LAB 08:33 → LAB SHORT 08:33
PROVIDERS: Physician Assistant
DX: R06.02 Shortness of breath (principal)
CPT/HCPCS: 80053; 83880; 84484; 85025

== ENCOUNTER 2024-02-14 10:09 | Inpatient (IN) | payer OTHER ==
[~2024-02-14] VITALS: Ht 170.2 cm; Wt 92.6 kg
[~2024-02-14 10:09] MED LIST changes: -ACET500 PO; -Cortef5 MG PO; -Flonase 0.05% N16 GM
[2024-02-14] MEDS ORDERED: Cortef5 MG PO (11:06)
[2024-02-14] MEDS ORDERED: ACET500 PO (11:08)
[2024-02-14 11:13] LABS: BASOPHILS ABSOLUTE AUTO 0.04 K/mm3 (0.00-0.23); BASOPHILS PERCENT AUTO 1 % (0-2); EOSINOPHILS ABSOLUTE AUTO 0.27 K/mm3 (0.00-0.68); EOSINOPHILS PERCENT AUTO 3 % (0-6); Hematocrit 30.2 % (37.0-53.0); Hemoglobin 10.2 g/dL (13.5-17.5); IMMATURE GRAN ABSOLUTE AUTO 0.03 K/mm3 (0.00-0.10); IMMATURE GRAN PERCENT AUTO 0 % (0-1); LYMPHOCYTES ABSOLUTE AUTO 0.95 K/mm3 (0.84-5.20); LYMPHOCYTES PERCENT AUTO 11 % (21-46); MONOCYTES ABSOLUTE AUTO 0.88 K/mm3 (0.16-1.47); MONOCYTES PERCENT AUTO 10 % (4-13); Mean Corpuscular HGB 33.1 pg (26.0-34.0); Mean Corpuscular HGB Conc 33.8 g/dL (31.5-36.5); Mean Corpuscular Volume 98 fL (80-100); Mean Platelet Volume 10.7 fL (9.1-12.4); NEUTROPHILS ABSOLUTE AUTO 6.55 K/mm3 (1.96-9.15); NEUTROPHILS PERCENT AUTO 75 % (41-73); Platelet Count 194 K/mm3 (150-400); RDW Coefficient Variation 11.8 % (11.7-14.2); RDW Standard Deviation 41.5 fL (35.1-46.3); Red Blood Cell Count 3.08 M/mm3 (4.30-5.90); White Blood Cell Count 8.72 K/mm3 (4.00-11.30)
[2024-02-14 11:27] LABS: Albumin, Blood 3.2 g/dL (3.4-5.0); Albumin/Globulin Ratio 0.9 (0.8-1.8); Bilirubin, Total 0.7 mg/dL (0.1-1.0); Calcium, Blood 8.4 mg/dL (8.5-10.1); Creatinine, Blood 2.57 mg/dL (0.60-1.20); Globulin, Blood 3.5 g/dL (2.2-4.0); Potassium, Blood 4.3 mmol/L (3.5-5.5); Total Protein, Blood 6.7 g/dL (6.4-8.2)
[2024-02-14] MEDS ORDERED: CefTRIAXone Sodium 1,000 MG in NS 100 ML IV ONE (12:55)
[2024-02-14] MEDS ORDERED: Azithromycin 500 MG in NS 250 ML IV ONE (12:55)
[2024-02-14] MEDS ORDERED: Hydrocortisone Sod Succinate 100 MG Vial IV ONE (12:55)
[2024-02-14 13:31] LABS: Influenza A, PCR NEGATIVE (NEGATIVE); Influenza B, PCR NEGATIVE (NEGATIVE); Resp Syncytial Virus, PCR NEGATIVE (NEGATIVE); SARS-Cov-2 (COVID-19) PCR, MMC NEGATIVE (NEGATIVE)
[2024-02-14] MEDS ORDERED: LORazepam 2 MG/ML 1ML Injection IV PRN (13:55)
[2024-02-14] MEDS ORDERED: FLU VACC TS2024-25(6MOS UP)/PF 45 MCG/0.5 ML SYRINGE IM SCH (13:55)
[2024-02-14] MEDS ORDERED: Lactated Ringer's 1,000 ML IV SCH (13:55)
[2024-02-14 14:14] LABS: Source, Urine Clean Catch
[2024-02-14 14:17] LABS: Appearance, Urine Hazy (Clear); Bilirubin, Urine Neg (Neg); Blood, Urine 5+ (Neg); Color, Urine Yellow (P-Yellow); Glucose Qualitative, Urine Neg (Neg); Ketones, Urine Neg (Neg); Leukocyte Esterase, Urine Neg (Neg); Nitrite, Urine Neg (Neg); Protein, Urine 2+ (Neg); Specific Gravity, Urine 1.015 (1.003-1.022); Urobilinogen, Urine NORM (Normal)
[2024-02-14] MEDS ORDERED: levETIRAcetam 750 MG in NS 100 ML IV SCH (14:20)
[2024-02-14 14:26] LABS: Bacteria Rare /hpf; Squamous Epithelial Cells Rare /hpf (Few); White Blood Cells, Urine 0-2 /hpf (0-5)
[2024-02-14 14:27] LABS: Red Blood Cells, Urine TNTC /hpf (0-2); Renal Epithelial Rare /hpf (0-Rare)
[2024-02-14] MEDS ORDERED: Lactated Ringer's 1,000 ML IV ONE ×2 (14:37→14:45)
[2024-02-14 15:56] LABS: Adenovirus Not Detected (NOT DETECT); Bordetella pertussis Not Detected (NOT DETECT); Chlamydophila pneumoniae Not Detected (NOT DETECT); Coronavirus 229E Not Detected (NOT DETECT); Coronavirus HKU1 Not Detected (NOT DETECT); Coronavirus NL63 Not Detected (NOT DETECT); Coronavirus OC43 Not Detected (NOT DETECT); Human Metapneumovirus Not Detected (NOT DETECT); Human Rhinovirus/Enterovirus Not Detected (NOT DETECT); Influenza A/2009-H1 Not Detected (NOT DETECT); Influenza A/H1 Not Detected (NOT DETECT); Influenza A/H3 Not Detected (NOT DETECT); Influenza B Not Detected (NOT DETECT); Mycoplasma pneumoniae Not Detected (NOT DETECT); Parainfluenza Virus 1 Not Detected (NOT DETECT); Parainfluenza Virus 2 Not Detected (NOT DETECT); Parainfluenza Virus 3 Not Detected (NOT DETECT); Parainfluenza Virus 4 Not Detected (NOT DETECT); Respiratory Syncytial Virus Not Detected (NOT DETECT); SARS-Cov-2 (COVID-19), BioFire Not Detected (NOT DETECT)
[2024-02-14 17:03] LABS: Base Excess Venous -2.1 mmol/L; Bicarbonate Venous 21.8 mmol/L (24.0-30.0); PCO2 Venous 42.4 mmHg (38-42); pH Blood Venous 7.35 (7.34-7.37)
--- NOTE | 2024-02-14 18:50 | NUR ---
PCU ADMIT / END OF SHIFT PT BROUGHT TO PCU-11 BY MIL FROM ER @ APPROX 1600. PT SLEEPING & NOT WAKING TO VERBAL STIMULI. PT SLID OVER FROM [facility] TO PCU BED BY 4 STAFF MEMBERS. PT MOANING IN RESPONSE. PT BP LOW, OTHERWISE VSS. SPO2 > 92% ON RA. MONITOR SHOWING SR, HR 70s. PT SPOUSE ACCOMPANYING PT AT TIME OF ARRIVAL. PT SPOUSE ASSISTING W/ ADMIT. PT SPOUSE APOLOGIZING & STATING "HE'S BEEN A LOT. HE WILL BE ALOT." PT SPOUSE REPORTING TO FAMILY "HE HIT ME & TRIED TO PUSH ME DOWN." PT FAMILY STATING "WELL HE LOOKS KNOCKED OUT NOW." PT SLEEPING, WAKING MINIMALLY TO VERBAL STIMULI W/ TOUCH. PT SPOUSE STATING "THIS IS WHAT HE DOES AFTER HE HAS A SEIZURE." PT SLEEPING IN BED. BED ALARM ON.
[2024-02-14 19:41] VITALS: BP 92/50
[2024-02-14 19:44] VITALS: BP 108/73
[2024-02-14] MEDS ORDERED: Hydrocortisone Sod Succinate 100 MG Vial IV SCH (22:00)
[2024-02-14 23:08] VITALS: BP 100/56
[2024-02-15 03:22] VITALS: BP 112/60
[2024-02-15 04:49] LABS: BASOPHILS ABSOLUTE AUTO 0.01 K/mm3 (0.00-0.23); BASOPHILS PERCENT AUTO 0 % (0-2); EOSINOPHILS PERCENT AUTO 0 % (0-6); Hematocrit 27.9 % (37.0-53.0); Hemoglobin 9.5 g/dL (13.5-17.5); IMMATURE GRAN ABSOLUTE AUTO 0.05 K/mm3 (0.00-0.10); IMMATURE GRAN PERCENT AUTO 1 % (0-1); LYMPHOCYTES ABSOLUTE AUTO 0.62 K/mm3 (0.84-5.20); LYMPHOCYTES PERCENT AUTO 6 % (21-46); MONOCYTES ABSOLUTE AUTO 0.19 K/mm3 (0.16-1.47); MONOCYTES PERCENT AUTO 2 % (4-13); Mean Corpuscular HGB 33.2 pg (26.0-34.0); Mean Corpuscular HGB Conc 34.1 g/dL (31.5-36.5); Mean Corpuscular Volume 98 fL (80-100); Mean Platelet Volume 11.2 fL (9.1-12.4); NEUTROPHILS PERCENT AUTO 92 % (41-73); Platelet Count 202 K/mm3 (150-400); RDW Coefficient Variation 11.3 % (11.7-14.2); RDW Standard Deviation 40.2 fL (35.1-46.3); Red Blood Cell Count 2.86 M/mm3 (4.30-5.90); White Blood Cell Count 10.37 K/mm3 (4.00-11.30)
[2024-02-15 05:12] LABS: Bun/Creatinine Ratio 19.9 (12.0-20.0); Calcium, Blood 8.8 mg/dL (8.5-10.1); Creatinine, Blood 1.81 mg/dL (0.60-1.20); Potassium, Blood 4.5 mmol/L (3.5-5.5)
--- NOTE | 2024-02-15 05:56 | NUR ---
shift summary- at start of shift patient woke up slightly agitated when taking vitals and removing a coban dressing- he quickly fell back asleep. about 30 minutes later when patient woke up he was redirectable, only oriented to himself, though able to engage in conversation, but not track it very well. for instance, when telling him he was in the hospital, he kept insisting that his was in the hospital and that he was at home. overall a very pleasant night with him, pt was able to follow all commands with direction. placed a purwick on him, he wasnt able to pee at first, bladder scan showed less than 400ml, and then patient was able to void 150ml. he ended up pulling out his IV, became confused and pulled off his purwick care home through the night, but was easily re-directable. new purwick placed, as well as IV, and he was able to urinate in the purwick for a 2nd time with coaching (as he is unfamilar with the device). Vital signs stable throughout the night, MAP greater than 65. called and given an update at 2100 from this RN. no other issues to note.
[2024-02-15] MEDS ORDERED: Pantoprazole Sodium 40 MG Injection IV SCH (06:00)
[2024-02-15 07:19] VITALS: BP 123/70
[2024-02-15] MEDS ORDERED: CefTRIAXone Sodium 1,000 MG in NS 100 ML IV SCH (09:00)
[2024-02-15] MEDS ORDERED: Azithromycin 500 MG in NS 250 ML IV SCH (09:00)
[2024-02-15] MEDS ORDERED: Heparin Sodium,Porcine 5,000 UNIT/0.5 ML SDV SC SCH (09:00)
[2024-02-15] MEDS ORDERED: OLANZapine 10 MG Tab PO PRN (10:10)
--- NOTE | 2024-02-15 14:22 | NUR ---
TRANSFER: PT TO ROOM 349 VIA BED. REPORT GIVEN TO MEDICAL RN. CALL PLACED TO , VOICEMAL LEFT.
--- NOTE | 2024-02-15 14:38 | NUR ---
TRANSFER NOTE PT A&OX1, UNABLE TO RECAL BIRTHDAY, ORIENTED TO NAME, SPEAKS IN SENTENCES BUT DOESN'T MAKE SENSE. PT ADMITTED DUE TO HYPOTENSION. PT REPORTS NO CHEST PAIN/DISCOMFORT. PT LAST BP WAS 123/70. PT REPORTS NO PAIN AND SHOWS NO GRIMACING AT THIS TIME. PT HAS SITTER. PT ON ROOM AIR. TELE WAS D/C. MALE PERWICK IN PLACE. RESPIRATIONS ARE EVEN AND UNLABORED. PT HAS OCCASIONAL COUGH. PT SAW SPEECH THERAPY, ST PUT IN ORDERS PT CAN SWALLOW PILLS WHOLE WITH WATER. SEIZURE PRECAUTIONS IN PLACE. PREVIOUS NURSE NOTIFIED OF TRANSFER. PT ORIENTED TO ROOM, CALL LIGHT IN REACH.
[2024-02-15 15:35] VITALS: BP 132/72
--- NOTE | 2024-02-15 16:47 | NUR ---
NOTE MD CALL. PUTTY REMOVER REPORTED PT WAS AGITATED, WENT INTO ROOM, NOTICED PT WAS RESTLESS, THROWING OFF COVERS. VISITOR AT BEDSIDE VERBALIZED THAT PT JUST WANTS OUT. NO NEW ORDERS AT THIS TIME.
--- NOTE | 2024-02-15 18:26 | NUR ---
SHIFT SUMMARY NO ACUTE CHANGES OCCURED DURING SHIFT. LR RUNNING AT 100ML/HR. SITTER AT BEDSIDE. PT WAS BLADDER SCANNED DUE TO POTENTIAL RETENTION. 470ML WAS NOTED. SITTER REPORTEDLY PALPATED BLADDER AND PT VOIDED PER MALE PERWICK 275ML. BLADDER SCANNED PT POST VOID. 195ML WAS NOTED PER SCAN. CALL LIGHT IN REACH.
[2024-02-15] MEDS ORDERED: QUEtiapine Fumarate 25 MG Tab PO ONE (19:35)
[2024-02-15 19:50] VITALS: BP 141/128
[2024-02-15] MEDS ORDERED: LORazepam 2 MG/ML 1ML Injection IV ONE (20:25)
[2024-02-15] MEDS ORDERED: Famotidine 20 MG Tab PO SCH (21:00)
[2024-02-15] MEDS ORDERED: NS 250 ML IV PRN (21:35)
[2024-02-16 02:17] VITALS: BP 119/55
[2024-02-16 05:33] LABS: BASOPHILS ABSOLUTE AUTO 0.01 K/mm3 (0.00-0.23); BASOPHILS PERCENT AUTO 0 % (0-2); EOSINOPHILS PERCENT AUTO 0 % (0-6); Hematocrit 27.1 % (37.0-53.0); IMMATURE GRAN ABSOLUTE AUTO 0.13 K/mm3 (0.00-0.10); IMMATURE GRAN PERCENT AUTO 1 % (0-1); LYMPHOCYTES PERCENT AUTO 7 % (21-46); MONOCYTES PERCENT AUTO 7 % (4-13); Mean Corpuscular HGB 33.1 pg (26.0-34.0); Mean Corpuscular HGB Conc 33.2 g/dL (31.5-36.5); Mean Corpuscular Volume 100 fL (80-100); Mean Platelet Volume 10.2 fL (9.1-12.4); NEUTROPHILS ABSOLUTE AUTO 11.59 K/mm3 (1.96-9.15); NEUTROPHILS PERCENT AUTO 86 % (41-73); Platelet Count 209 K/mm3 (150-400); RDW Coefficient Variation 11.6 % (11.7-14.2); RDW Standard Deviation 41.8 fL (35.1-46.3); Red Blood Cell Count 2.72 M/mm3 (4.30-5.90); White Blood Cell Count 13.53 K/mm3 (4.00-11.30)
[2024-02-16] MEDS ORDERED: Levothyroxine Sodium 0.075 MG Tab PO SCH (06:00)
[2024-02-16 06:02] LABS: Calcium, Blood 8.8 mg/dL (8.5-10.1); Creatinine, Blood 1.52 mg/dL (0.60-1.20); Potassium, Blood 4.3 mmol/L (3.5-5.5)
--- NOTE | 2024-02-16 06:26 | NUR ---
SHIFT SUMMARY NOC PT A/O TO SELF. DIFFICULT TO REDIRECT. VSS. DURING HS VS PT BECAME HIGHLY AGITATED AND KICKED/PUNCHED MULTIPLE NURSING STAFF, AND TRYING TO PULL 5TH IV OUT. ORDER OBTAINED FOR BUE LOCKED WRIST RESTRAINTS AND ATIVAN IV 2MG FOR AGITATION. PT GOOD URINE OUTPUT BUT DEVIKA COLORED, PT BLADDER SCANNED RETAINING 190 ML. LR IS INFUSING @ 100 ML/HR. SEIZURE PADS IN PLACE. PT HAS DIRECT OBSERVATION SITTER IN PLACE FOR ADDITIONAL SAFETY. PT CURRENTLY RESTING WITH BED IN LOWEST POSITION, AND CALL LIGHT WITHIN REACH.
[2024-02-16 07:58] VITALS: BP 122/59
[2024-02-16] MEDS ORDERED: Atorvastatin 10 MG Tab PO SCH (09:00)
[2024-02-16] MEDS ORDERED: Hydrocortisone 20 MG Tab PO SCH (09:00)
[2024-02-16] MEDS ORDERED: Aspirin 81 MG Chew PO SCH (09:00)
[2024-02-16] MEDS ORDERED: OLANZapine 10 MG Vial IM PRN (10:05)
[2024-02-16] MEDS ORDERED: Lactated Ringer's 1,000 ML IV SCH (12:25)
[2024-02-16] MEDS ORDERED: LORazepam 2 MG/ML 1ML Injection IV ONE (14:15)
[2024-02-16] MEDS ORDERED: Hydrocortisone 10 MG Tab PO SCH (18:00)
--- NOTE | 2024-02-16 18:01 | NUR ---
SHIFT SUMMARY PT AO TO SELF, MEDICATED FOR AGITATION PER THE EMAR. RESTRAINTS WERE DISCONTINUED THIS AM, FAMILY AND 1:1 SITTER WERE ASSISTING WITH DISTRACTION FROM PULLING LINES. INCONTINENT, BRIEF CHANGED NEEDED. REPOSITIONED THROUGHOUT THE SHIFT. POSSIBLE DC TOMORROW. UPDATED FAMILY. CALL LIGHT WITHIN REACH, BED LOCKED AND IN THE LOWEST POSITION. WILL REPORT TO ONCOMING NURSE.
[2024-02-16 20:44] VITALS: BP 125/101
[2024-02-16] MEDS ORDERED: LevETIRAcetam 500 MG Tab PO SCH (22:00)
[2024-02-16] MEDS ORDERED: Guaifenesin/Dextromethorphan Syrup 5 ML UDC PO PRN (23:40)
[2024-02-17 05:53] VITALS: BP 140/93
[2024-02-17] MEDS ORDERED: Pantoprazole Sodium 40 MG Tab PO SCH (06:00)
[2024-02-17 06:24] LABS: BASOPHILS ABSOLUTE AUTO 0.03 K/mm3 (0.00-0.23); BASOPHILS PERCENT AUTO 0 % (0-2); EOSINOPHILS ABSOLUTE AUTO 0.15 K/mm3 (0.00-0.68); EOSINOPHILS PERCENT AUTO 2 % (0-6); Hematocrit 26.4 % (37.0-53.0); IMMATURE GRAN ABSOLUTE AUTO 0.21 K/mm3 (0.00-0.10); IMMATURE GRAN PERCENT AUTO 3 % (0-1); LYMPHOCYTES ABSOLUTE AUTO 1.61 K/mm3 (0.84-5.20); LYMPHOCYTES PERCENT AUTO 20 % (21-46); MONOCYTES ABSOLUTE AUTO 0.83 K/mm3 (0.16-1.47); MONOCYTES PERCENT AUTO 10 % (4-13); Mean Corpuscular HGB 33.2 pg (26.0-34.0); Mean Corpuscular HGB Conc 34.1 g/dL (31.5-36.5); Mean Corpuscular Volume 97 fL (80-100); NEUTROPHILS ABSOLUTE AUTO 5.42 K/mm3 (1.96-9.15); NEUTROPHILS PERCENT AUTO 66 % (41-73); NRBC ABSOLUTE 0.02 K/mm3 (0.00-0.02); NRBC Auto 0.2 /100 WBC (0.0-0.2); Platelet Count 221 K/mm3 (150-400); RDW Coefficient Variation 11.9 % (11.7-14.2); RDW Standard Deviation 42.4 fL (35.1-46.3); Red Blood Cell Count 2.71 M/mm3 (4.30-5.90); White Blood Cell Count 8.25 K/mm3 (4.00-11.30)
[2024-02-17 07:12] LABS: Bun/Creatinine Ratio 20.1 (12.0-20.0); Calcium, Blood 8.7 mg/dL (8.5-10.1); Creatinine, Blood 1.49 mg/dL (0.60-1.20); Potassium, Blood 3.9 mmol/L (3.5-5.5)
[2024-02-17 07:38] VITALS: BP 138/99
--- NOTE | 2024-02-17 07:44 | NUR ---
SHIFT SUMMARY NOC PT TO SELF. AGITATED AT TIMES, BUT OVERALL COOPERATIVE WITH CARE. VSS. PT GIVEN ONE DOSE IM ZYPREXA FOR AGITATION WITH GOOD EFFECT. LR INFUSION FINISHED. WHEN GIVEN PO RX AT BEDTIME PT DID NOT FOLLOW INTRUCTIONS AND CHEWED RX. PT 0600 RX HELD DUE TO PT NOT BEING ALERT ENOUGH TO TAKE THEM. PT HAD 2 XL INCONTINENT VOIDS. BLADDER SCAN PERFORMED IN AM SHOWED 160 ML IN BLADDER. PT EXPECTED TO DISCHARGE TODAY ON HOME HEALTH. PT HAS DIRECT OBSERVATION SITTER IN PLACE FOR SAFETY. PT CURRENTLY RESTING WITH BED IN LOWEST POSITION, AND CALL LIGHT WITHIN REACH.
[2024-02-17] MEDS ORDERED: Fluticasone 0.05% Nasal Spray SCH (09:00)
--- NOTE | 2024-02-17 13:32 | NUR ---
PALLIATIVE CARE IN ROOM TO DISCUSS WITH PT FAMILY BIANCA SARAH REGARDING PT PLAN OF CARE. ASSESSED SAFETY CONCERNS RELATED TO DISCHARGE AT THIS TIME. PALLIATIVE CARE NURSE TO CALL DR CAIN.
[2024-02-17] MEDS ORDERED: Flonase 0.05% N16 GM (14:33)
[2024-02-17 16:38] VITALS: BP 150/82
[2024-02-17] MEDS ORDERED: Morphine Sulfate 20 MG/1ML 1 ML Oral Syringe SL PRN (17:05)
[2024-02-17] MEDS ORDERED: LORazepam 2 MG/ML 1ML Injection IV PRN (17:05)
--- NOTE | 2024-02-17 17:26 | NUR ---
PT'S YAS DID NOT FEEL COMFORTABLE TAKING THE PATIENT HOME IN HIS CURRENT CONDITION. TODAY, HE WAS SLEEPING MOST OF THE DAY, SHOWING SIGNS OF AGITATION. AFTER LONG GOALS OF CARE DISCUSSION, CALLED PT'S ADULT CHILDREN, AND THEY STATE IT IS TIME FOR HOSPICE. PT'S STATES SHE IS IN AGREEMENT WITH THIS PLAN. DR. CAIN IN AGREEMENT, AND PLACING COMFORT ORDERS. CORRECTIONAL SERGEANT TO ASSIST TOMORROW WITH [facility] PLACEMENT WITH H[facility]PICE (FIRST CHOICE IS [facility], [address] [place] [id number]). INSTRUCTED BEDSIDE RN TO CONTINUE MEDICATING PT FOR COMFORT FROM AGITATION.
[2024-02-17] MEDS ORDERED: levETIRAcetam 750 MG in NS 100 ML IV SCH (18:00)
--- NOTE | 2024-02-17 18:11 | NUR ---
SHIFT SUMMARY PT A&OX SELF AND STARTED TO SHIFT DROWSY. SHIFT CONTINUED PT BECAME MORE ALERT BUT WAS STILL NOT ORIENTED. PT MORNING PO MEDS HELD FOR ASPIRATION RISK. PT RESISTANT TO PO MEDICATION AND ATTEMPTS TO SPIT OUT MEDS WHEN GIVEN. ABLE TO ADMINISTER HYDROCORTISONE AND ROXANOL PO. VSS, NO COMPLAINTS OF CP/PRESSURE OR SOB. PT REPOSITIONED Q2HRS. NO ACUTE EVENTS AT THIS TIME. PT PLACED ON COMFORT CARE. D/C HELD DUE TO PT HOME SAFETY. NEW PLAN OF CARE IS PURSUING HOSPICE WITH THE [facility]. NO ACUTE EVENTS AT THIS TIME. PT LEFT IN A POSITION OF SAFETY WITH FALL PRECAUTIONS IN PLACE AND CALL LIGHT IN REACH.
[2024-02-17] MEDS ORDERED: Lactobacil 2-S.Thermo-Bifido 1 1 Cap PO SCH (21:00)
--- NOTE | 2024-02-18 05:38 | NUR ---
SHIFT SUMMARY NOC PT A/O X O. PT HAS BEEN ASLEEP FOR ENTIRETY OF SHIFT. ON COMFORT CARE MEASURES. NO ACUTE EVENTS TO REPORT. Q2H TURNS. PUREWICK IN PLACE FOR COMFORT. PT HAS SITTER IN PLACE. PT AWAITING PLACEMENT AT [facility]. PT CURRENTLY RESTING WITH BED IN LOWEST POSITION, AND CALL LIGHT WITHIN REACH.
[2024-02-18] MEDS ORDERED: LORazepam 1 MG Tab PO PRN (11:40)
[2024-02-18] MEDS ORDERED: Haloperidol Lactate 2 MG/ML Conc 1ML Dose PO PRN (11:40)
[2024-02-18] MEDS ORDERED: Promethazine HCl 25 MG Supp PR PRN (11:40)
--- NOTE | 2024-02-18 18:43 | NUR ---
SHIFT SUMMARY- PT ALERT AND ORIENTED TO SELF. HE IS ON COMFORT CARE. HE SEEMS TO RECOGNIZE HIS WIFES VOICE AND, TODAY, FINDS IT SOOTHING. HE HAS A NO IV ACCESS ORDER AND HAS RECIEVED ROXANOL AND PO ATIVAN TOGETHER. HE HAS BEEN RESTING AND APEARS COMFORTABLE AT THIS TIME. PT DOES NOT HAV IV ACCESS AND NEEDS TO BE MEDICATED REGULARLY SO HE DOES NOT BECOME DISTRESSED AND ANXIOUS. WILL PASS ON TO NIGHT RN IN REPORT.
[2024-02-18] MEDS ORDERED: levETIRAcetam 750 MG TABLET PO SCH (21:00)
--- NOTE | 2024-02-19 04:20 | NUR ---
SHIFT SUMMARY ADMITTED FOR HYPOTENSION. DNR CODE. COMFORT CARE PATIENT. SOFT BITE SIZE DIET. ANXIETY AND PAIN RX GIVEN THIS SHIFT TO GOOD EFFECT. HE IS ON BEDREST. HE IS INCONTINENT, ATTENDS IN PLACE. HE LIVES WITH HIS . PLAN IS FOR DC W/HOSPICE, UNCERTAIN OF WHERE TO AT THIS TIME. ON RA. [facility] PATIENT.
[2024-02-19] MEDS ORDERED: Scopolamine Hydrobromide Patch TOP PRN (09:10)
[2024-02-19] MEDS ORDERED: Atropine Sulfate 1% Opth Soln 2ML BTL SL PRN (09:10)
--- NOTE | 2024-02-19 19:52 | NUR ---
SHIFT SUMMARY- PT HAS BEEN UNRESPONSIVE (ASIDE FROM MOANS AND GRUNTS) REPOSITIONED Q2 T/O THE DAY. PT FAMILY HAS REMAINED AT THE BEDSIDE T/O THE SHIFT. PT HAS NOT BEEN AGGITATED OR PAINFULL IN APPEARANCE. PT GOT A PARTIAL FACE SHAVE THIS EVENING WITH NO SIGN OF DISCOMFORT. DAUGHTER IS CURRENTLY AT THE BEDSIDE. SUCTION SET UP AT THE BEDSIDE THE PT HAS HAD A LOT OF SECRETIONS TODAY. GOOD ORAL CARE PROVIDED AND ATROPIENE DROPS WELL SCOPOLAMINE PATCH WERE ADMINISTERED. AT THE TIME OF BEDSIDE REPORT THE PT WAS SLEEPING SOUNDLY NO S&S OF DISTRESS. HE WAS NOTED TO HAVE SHORT PERIODS OF APNEA TODAY. SPOUSE HAS ASKED TO BE NOTIFIED IF THE PT HAS ANY CHANGES. NIGHT RN AWARE.
--- NOTE | 2024-02-20 04:22 | NUR ---
SHIFT SUMMARY ADMITTED FOR HYPOTENSION. DNR CODE. COMFORT CARE PATIENT. PLAN IS FOR PLACEMENT ON HOSPICE. HE IS A [facility] PATIENT. FAMILY AT BEDSIDE. THIS SHIFT HE HAS NOT BEEN AGITATED OR RESTLESS. HE HAS BEEN SOUNDLY SLEEPING WITH NO S/SX'S OF DISCOMFORT. HE FEELS WARM TO THE TOUCH. HE IS NOT VERBALIZING OR GROANING/YELLING OUT LIKE HE DID ON PREVIOUS SHIFTS. ON RA. ON BEDREST. SUCTION READY AT BEDSIDE. THE SCOPALAMINE PATCH HAS BEEN EFFECTIVE AND I NOTE NO GURGLING THIS SHIFT.
--- NOTE | 2024-02-20 10:43 | NUR ---
"Spiritual Care Visit | Comfort Care | Nurse Request Pt. is on Comfort Care and is not responsive. Spouse is at bedside meeting with a Palliative Care volunteer who then excused themselves. Facilitated an introductory life review and considered matters of gary and belief. Spouse displayed evidence of a long grief as she has been caring for the Pt. at home for an extended period of time. Considered EOL matters. Spouse chooses [facility] for their [facility]. Prayed with Spouse. Spouse verbalized gratitude for the spiritual care visit. This structural architect informed Med Floor charge nurse of home choice."
--- NOTE | 2024-02-20 15:09 | NUR ---
COMFORT CARE SUPPORTIVE VISIT PT LYING SUPINE IN BED. OBTUNDED. HEAVY, EVEN BREATHING. NO APNIC PAUSES NOTED AT THIS TIME. BLE EDEMA. PT APPEARS COMFORTABLE. THERAPUTIC LISTENING AND VALIDATION OF FEELINGS FOR PT'S , YAS. SHE REPORTS FEELING WELL SUPPORTED. PRIMARY RN REPORTS MANAGING PT'S EOL SYMPTOMS WITH COMFORT CARE ORDERS. PC TO REMAIN AVAILABLE NEEDED.
--- NOTE | 2024-02-20 18:43 | NUR ---
SHIFT SUMMARY- PT HAS BEEN UNRESPONSIVE ALL SHIFT. FAMILY HAS BEEN AT THE BEDSIDE. PT HAS BEEN REPOSITIONED Q2 SOME REPOSITIONS WER SMALL SHIFTS TO PREVENT THE PT FROM HAVING ISSUES WITH SECRETIONS THE FAMILY REQUESTED THE HOB ELEVATED. PT HAS 8 PILLOWS TO AID IN POSSITION CHANGES. PT HAS NOT REQUIRED ANY MEDS FOR COMFORT TODAY, HE HAS REMAINED UNRESPONSIVE. PT HAS NOT VOIDED AT ALL THIS SHIFT. REMOVED THE EXTRA MALE WRAP, HE NOW HAS JUST ATTENDS IN PLACE, HE HAS A SMALL PRESSURE SORE ON HIS PENIS FROM THE SLIGHT PRESSURE OF THE MALE WRAP. PT HAS REDNESS NOTED ON HIS HEELS, ATTEMPTS WERE MADE TO FLOAT THE HEELS AND FOAM HEEL PROTECTORS WERE PLACED. THE HEEL PROTECTORS WERE LEAVING INDENTATIONS, REMOVED AND APPLIED LOTION EARLIER IN THE SHIFT, AND REPLACED. THERE ARE NOW SMALL NON BLANCHING SPOTS ON THE PT FEET. HEEL PROTECTORS REMOVED TO RELIEVE THE PRESSURE THERE AND HE WAS ROLLED TO HIS LEFT SIDE HEELS ARE FLOATED BEST THEY CAN BE. THE PT HAS A LARGE NON-BLANCHABLE SPOT ON HIS COCCYX, PLACED A MEPILEX THIS EVENING. APPLIED POWDER TO THE PT FOLDS. HIS BREATHING HAS BECOME MORE SHALLOW T/O THE SHIFT, BUT HE DOES NOT APPEAR TO BE IN DISTRESS.
--- NOTE | 2024-02-21 02:24 | NUR ---
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 Prayers and scripture are shared. Facilitated some life review. Family displayed evidence of normative expected grief. [facility] is the families home choice."
--- NOTE | 2024-02-21 06:44 | NUR ---
SHIFT SUMMARY PT APPEARED TO BE RESTING COMFORTABLY WITH FAMILY AT HIS SIDE. PT WAS ROUTINELY CHECKED AND REPOSITIONED PER HOSPITAL POLICY. AT 0100 NURSE AND SUPERVISOR [employer] ENTERED ROOM TO REPOSITION AND ROUTINE CHECK ON PT. PT WAS UNRESPONSIVE. PT WAS POSITIVELY IDENTIFIED WITH HOSPITAL ID.. PT WAS ACCESSED FOR BREATHING, LUNG SOUNDS, AND CAROTID PULSE, ALL NEGATIVE. PUPILS WERE FIXED AND DILATED, NOT RESPONDING TO LIGHT. TIME OF WAS RECORDED 10102/21/24. PT HAS PACEMAKER IMPLANT. ASSISTANT CHILD CARE TEACHER VERIFIED, FAMILY NOTIFIED, HOSPITAL PROTOCOL FOLLOWED.
== END 2024-02-21 01:02 | DRG 314 ==
LOC: ER 10:09 → PCU 13:52 → MEDS 13:52 → PCU 16:07 → MEDS 02-15 14:21 → ENPENDDIS 02-17 14:26 → MEDS 02-21 01:02
PROVIDERS: Student in an Organized Health Care Education/Training Program; ADMIT Family Medicine
DX: I95.9 Hypotension, unspecified (principal); I63.9 Cerebral infarction, unspecified; J18.9 Pneumonia, unspecified organism; E27.40 Unspecified adrenocortical insufficiency; N17.9 Acute kidney failure, unspecified; F02.818 Dementia in other diseases classified elsewhere, unspecified severity, with other behavioral disturbance; F02.811 Dementia in other diseases classified elsewhere, unspecified severity, with agitation; K21.9 Gastro-esophageal reflux disease without esophagitis; Z51.5 Encounter for palliative care; Z66 Do not resuscitate; E03.9 Hypothyroidism, unspecified; G30.9 Alzheimer's disease, unspecified; I12.9 Hypertensive chronic kidney disease with stage 1 through stage 4 chronic kidney disease, or unspecified chronic kidney disease; G40.909 Epilepsy, unspecified, not intractable, without status epilepticus; E78.5 Hyperlipidemia, unspecified; E89.3 Postprocedural hypopituitarism; I44.1 Atrioventricular block, second degree; I44.0 Atrioventricular block, first degree; N18.30 Chronic kidney disease, stage 3 unspecified; M19.90 Unspecified osteoarthritis, unspecified site; Z86.73 Personal history of transient ischemic attack (TIA), and cerebral infarction without residual deficits; Z95.0 Presence of cardiac pacemaker; Z90.89 Acquired absence of other organs; Z98.890 Other specified postprocedural states; Z79.82 Long term (current) use of aspirin; Z79.890 Hormone replacement therapy; Z79.899 Other long term (current) drug therapy; Z78.1 Physical restraint status; Z98.42 Cataract extraction status, left eye; Z98.41 Cataract extraction status, right eye; Z85.828 Personal history of other malignant neoplasm of skin; Z82.3 Family history of stroke
CPT/HCPCS: 0202U; 0241U; 36415; 51701; 70450; 71046; 76770; 80048; 80053; 81001; 82140; 82803; 83605; 83880; 84145; 84484; 85025; 87040; 92610; 93005; 93010; 96374; 97110; 97116; 97162; 97530; 99285-25; A9270; J0456; J0696; J1644; J1720; J1953; J2060; J2470; J7050; J7120

== ENCOUNTER → 2024-02-14 | Outpatient (CLI) | payer OTHER ==
[~2024-02-14] MED LIST changes: +Flonase 0.05% N16 GM
[2024-02-14 10:23] LABS: BASOPHILS ABSOLUTE AUTO 0.06 K/mm3 (0.00-0.23); BASOPHILS PERCENT AUTO 1 % (0-2); EOSINOPHILS ABSOLUTE AUTO 0.46 K/mm3 (0.00-0.68); EOSINOPHILS PERCENT AUTO 4 % (0-6); Hematocrit 31.7 % (37.0-53.0); IMMATURE GRAN ABSOLUTE AUTO 0.04 K/mm3 (0.00-0.10); IMMATURE GRAN PERCENT AUTO 0 % (0-1); LYMPHOCYTES ABSOLUTE AUTO 1.29 K/mm3 (0.84-5.20); LYMPHOCYTES PERCENT AUTO 12 % (21-46); MONOCYTES ABSOLUTE AUTO 0.95 K/mm3 (0.16-1.47); MONOCYTES PERCENT AUTO 9 % (4-13); Mean Corpuscular HGB 33.7 pg (26.0-34.0); Mean Corpuscular HGB Conc 34.7 g/dL (31.5-36.5); Mean Corpuscular Volume 97 fL (80-100); Mean Platelet Volume 11.1 fL (9.1-12.4); NEUTROPHILS ABSOLUTE AUTO 7.72 K/mm3 (1.96-9.15); NEUTROPHILS PERCENT AUTO 73 % (41-73); Platelet Count 221 K/mm3 (150-400); RDW Coefficient Variation 11.8 % (11.7-14.2); Red Blood Cell Count 3.26 M/mm3 (4.30-5.90); White Blood Cell Count 10.52 K/mm3 (4.00-11.30)
[2024-02-14 10:45] LABS: Albumin, Blood 3.4 g/dL (3.4-5.0); Albumin/Globulin Ratio 0.9 (0.8-1.8); Bilirubin, Total 0.7 mg/dL (0.1-1.0); Bun/Creatinine Ratio 15.1 (12.0-20.0); Creatinine, Blood 3.05 mg/dL (0.60-1.20); Free Thyroxine 1.18 ng/dL (0.70-1.60); Globulin, Blood 3.7 g/dL (2.2-4.0); Potassium, Blood 4.2 mmol/L (3.5-5.5); Thyroid Stimulating Hormone 0.438 uIU/mL (0.360-4.800); Total Protein, Blood 7.1 g/dL (6.4-8.2)
== END ==
LOC: LAB SHORT 10:19 → LAB 10:19
PROVIDERS: Emergency Medicine
DX: R41.82 Altered mental status, unspecified (principal)
CPT/HCPCS: 80053; 84439; 84443; 84484; 85025